=== PATIENT | female | born 1960 | race Hispanic/Latino ===

== ENCOUNTER 2018-03-21 14:35 | Emergency (ER) | payer OTHER ==
[2018-03-21 15:02] VITALS: RESP 18
[2018-03-21 15:03] VITALS: BMI 22.7
--- NOTE | 2018-03-21 15:32 | ED PDOC ---
Arrival/HPI - General Historian: Patient - History of Present Illness Narrative History of Present Illness (Text): 03/21/18 15:15 57-year-old female with a history of depression presents today with a 2 day history of left foot pain swelling and erythema. Patient states she had a pedicure about a month ago and had some pain in the left great toe since then. Patient states the pain became severe 2 days ago when she noticed erythema and a large swelling to the plantar aspect of the left great toe. She denies fevers or chills at home. She denies numbness weakness or tingling in the extremity. Patient denies a history of diabetes. Patient denies any trauma or injury. No medications have been taken at home for pain. No other complaints. Time/Duration: Other (2 days) <Estela Clements - Last Filed: 03/21/18 19:40> <Jaret Polo - Last Filed: 03/22/18 07:27> - General Chief Complaint: Lower Extremity Problem/Injury Time Seen by Provider: 03/21/18 14:37 Past Medical History - Provider Review Nursing Documentation Reviewed: Yes - Travel History Have you recently traveled outside [place] w/in the past 3 mons?: No - Psychiatric Hx Depression: Yes Hx Substance Use: No - Surgical History Other/Comment: wisdom teeth removal - Anesthesia Hx Anesthesia: Yes Hx Anesthesia Reactions: No Hx Malignant Hyperthermia: No <Estela Clements - Last Filed: 03/21/18 19:40> Family/Social History - Physician Review Nursing Documentation Reviewed: Yes Family/Social History: Unknown Family HX Smoking Status: Never Smoked Hx Alcohol Use: Yes Frequency of alcohol use: Socially Hx Substance Use: No <Estela Clements - Last Filed: 03/21/18 19:40> Allergies/Home Meds <Estela Clements - Last Filed: 03/21/18 19:40> <Jaret Polo - Last Filed: 03/22/18 07:27> Allergies/Adverse Reactions: Allergies No Known Allergies Allergy (Verified 03/21/18 15:08) Review of Systems - Review of Systems Constitutional: absent: Fatigue, Fevers Respiratory: absent: SOB, Cough Cardiovascular: absent: Chest Pain, Palpitations Gastrointestinal: absent: Abdominal Pain, Nausea, Vomiting Musculoskeletal: Arthralgias Skin: Abscess, Cellulitis Neurological: absent: Headache, Dizziness Psychiatric: absent: Anxiety, Depression <Estela Clements T - Last Filed: 03/21/18 19:40> Physical Exam Vital Signs Reviewed: Yes Vital Signs Temp Pulse Resp BP Pulse Ox 03/21/18 15:02 98.2 F 101 H 18 123/60 99 Temperature: Afebrile Blood Pressure: Normal Pulse: Tachycardic Respiratory Rate: Normal Appearance: Positive for: Well-Appearing, Non-Toxic, Comfortable Pain Distress: None Mental Status: Positive for: Alert and Oriented X 3 - Systems Exam Head: Present: Atraumatic Neck: Present: Normal Range of Motion Respiratory/Chest: Present: Clear to Auscultation, Good Air Exchange. No: Respiratory Distress, Accessory Muscle Use Cardiovascular: Present: Regular Rate and Rhythm, Normal S1, S2. No: Murmurs Upper Extremity: Present: Normal Inspection Lower Extremity: Present: NORMAL PULSES, Normal ROM, Tenderness, Swelling, Erythema, Neurovascularly Intact, Capillary Refill < 2 s. No: CALF TENDERNESS Neurological: Present: GCS=15, Speech Normal Skin: Present: Warm, Dry Psychiatric: Present: Alert, Oriented x 3 <Estela Clements T - Last Filed: 03/21/18 19:40> Vital Signs Temp Pulse Resp BP Pulse Ox 03/21/18 20:42 98.9 F 75 18 127/73 97 03/21/18 19:00 72 18 124/72 100 03/21/18 15:02 98.2 F 101 H 18 123/60 99 <Jaret Polo - Last Filed: 03/22/18 07:27> Medical Decision Making ED Course and Treatment: 03/21/18 15:51 57yr old female with left foot pain, swelling, erythema and fluctuance. Cbc wnl Cmp wnl blood cultures Pending xray left foot: FINDINGS: BONES: Normal. No fracture. JOINTS: Normal. SOFT TISSUES: There is severe soft tissue swelling around the 1st MTP joint. No evidence of osteomyelitis OTHER FINDINGS: None. IMPRESSION: There is severe soft tissue swelling around the 1st MTP joint. No evidence of osteomyelitis case discussed with dr. May and Podiatry resident who will see patient at bedside. Patient was seen and evaluated by the podiatry resident at bedside. A bedside incision and drainage was performed. Patient was given 1 g of Ancef IV. Patient is to be discharged home to follow-up with Dr. May within the next 2 days. pt advised to take medications as prescribed and return immediately if symptoms worsen,persist or if new symptoms develop. pt is to follow up with dr. May in the wound care center on friday. Cane given for ambulation. pt was seen and evaluated by dr. Polo. Patient verbalizes understanding of discharge instructions and need for immediate followup. Impression: abscess, foot Motrin every 6 hours as needed for pain Keflex 1 capsule 4 times daily 7 days Bactrim 1 tablet twice daily 7 days Follow-up with the community development director within the next 2 days Follow up with the primary care physician within the next 2 days. Return immediately if symptoms worsen persist or if new concerning symptoms dev elop 03/21/18 19:40 - RAD Interpretation Radiology Orders: 03/21/18 15:13 FOOT LEFT 3 VIEWS ROUTINE [RAD] Stat <Estela Clements T - Last Filed: 03/21/18 19:40> ED Course and Treatment: 03/22/18 07:27 The documented history was done by the physician critical care technician. The documented physical exam was done by the physician critical care technician. The documented procedures were done by the physician critical care technician, I was available for consultation during the PA/CANCELLATION CLERK evaluation. The chart was reviewed by me, and I agree with the management and plan. - Lab Interpretations Lab Results: 03/21/18 15:30 03/21/18 15:30 Lab Results 03/21/18 15:30: pO2 18 L, VBG pH 7.36, VBG pCO2 56.0, VBG HCO3 31.6 H, VBG Total CO2 33.3 H, VBG O2 Sat (Calc) 28.5 L, VBG Base Excess 4.6 H, VBG Potassium 4.6, Sodium 136.0, Chloride 103.0, Glucose 108 H, Lactate 0.9, FiO2 21.0, Venous Blood Potassium 4.6 03/21/18 15:30: WBC 9.3, RBC 4.70, Hgb 14.3, Hct 43.0, MCV 91.5, MCH 30.4, MCHC 33.3, RDW 13.4, Plt Count 288, MPV 8.7, Gran % 64.4, Lymph % (Auto) 25.2, [place] % (Auto) 6.6 H, Eos % (Auto) 3.3, Baso % (Auto) 0.5, Gran # 5.97, Lymph # (Auto) 2.3, [place] # (Auto) 0.6, Eos # (Auto) 0.3, Baso # (Auto) 0.05 03/21/18 15:30: Sodium 137, Chloride 101, Potassium 4.8, Carbon Dioxide 30, Anion Gap 11, BUN 14, Creatinine 0.6 L, Est GFR ( Amer) > 60, Est GFR (Non-Af Amer) > 60, Random Glucose 110, Calcium 9.6, Total Bilirubin 0.4, AST 28, ALT 27, Alkaline Phosphatase 105, Total Protein 7.6, Albumin 4.2, Globulin 3.4, Albumin/Globulin Ratio 1.2 - RAD Interpretation Radiology Orders: 03/21/18 15:13 FOOT LEFT 3 VIEWS ROUTINE [RAD] Stat - Medication Orders Current Medication Orders: Discontinued Medications Cefazolin Sodium (Ancef 1gm In Ns) 1 gm in 100 mls @ 100 mls/hr IVPB STAT STA; Protocol Stop: 03/21/18 19:24 Lidocaine HCl (Lidocaine 1% (20ml)) 10 ml IJ STAT STA Stop: 03/21/18 18:33 <Jaret Polo - Last Filed: 03/22/18 07:27> Disposition/Present on Arrival - Present on Arrival Any Indicators Present on Arrival: No History of DVT/PE: No History of Uncontrolled Diabetes: No Urinary Catheter: No History of Decub. Ulcer: No History Surgical Site Infection Following: None - Disposition Have Diagnosis and Disposition been Completed?: Yes Disposition Time: 15:54 Patient Plan: Discharge <Estela Clements - Last Filed: 03/21/18 19:40> <Jaret Polo - Last Filed: 03/22/18 07:27> - Disposition Diagnosis: Foot abscess, left Disposition: HOME/ ROUTINE Condition: GOOD Discharge Instructions (ExitCare): Abscess Incision and Drainage Additional Instructions: Motrin every 6 hours as needed for pain Keflex 1 capsule 4 times daily 7 days Bactrim 1 tablet twice daily 7 days Follow-up with the community development director within the next 2 days Follow up with the primary care physician within the next 2 days. Return immediately if symptoms worsen persist or if new concerning symptoms develop Prescriptions: Cephalexin [Keflex] 500 mg PO QID #28 capsule Ibuprofen [Motrin] 600 mg PO Q6H PRN #20 tab PRN Reason: pain/fever reduction Sulfamethoxazole/Trimethoprim [Bactrim DS 800 mg-160 mg] 1 tab PO BID #14 tab Referrals: Aston May DPM [Staff Provider] - Follow up with primary [facility] [Outside] - Follow up with primary [facility] [Outside] - Follow up with primary Forms: [employer] ([employer]), WORK NOTE
[2018-03-21 16:15] LABS: VENOUS BLOOD GAS BASE EXCESS 4.6 mmol/L (0.0-2.0); VENOUS BLOOD GAS PO2 18 mm/Hg (30-55); VENOUS BLOOD PH 7.36 (7.32-7.43)
[2018-03-21 16:18] LABS: BASO # 0.05 K/mm3 (0.0-2.0); BASO % 0.5 % (0.0-3.0); EOS # 0.3 (0.0-0.7); EOS % 3.3 % (1.5-5.0); GRAN # 5.97 (1.4-6.5); GRAN % 64.4 % (50.0-68.0); HEMOGLOBIN 14.3 g/dL (12.0-16.0); LYMPH # 2.3 (1.2-3.4); LYMPH % 25.2 % (22.0-35.0); MEAN CELL VOLUME 91.5 fl (80.0-105.0); MEAN CORPUSCULAR HEMOGLOBIN 30.4 pg (25.0-35.0); MEAN CORPUSCULAR HGB CONC 33.3 g/dl (31.0-37.0); MEAN PLATELET VOLUME 8.7 fl (7.0-11.0); MONO # 0.6 (0.1-0.6); MONO % 6.6 % (1.0-6.0); RBC 4.7 10^6/uL (3.5-6.1); RED CELL DISTRIBUTION WIDTH 13.4 % (11.5-14.5); WHITE BLOOD COUNT 9.3 10^3/ul (4.5-11.0)
[2018-03-21 16:31] LABS: ALB/GLOB RATIO 1.2 (1.1-1.8); ALBUMIN 4.2 g/dL (3.0-4.8); ALT/SGPT 27 U/L (7-56); AST/SGOT 28 U/L (14-36); BLOOD UREA NITROGEN 14 mg/dL (7-21); CALCIUM 9.6 mg/dL (8.4-10.5); GFR NON-AFRICAN AMERICAN > 60
--- NOTE | 2018-03-21 16:50 | RAD ---
Date of service: 03/21/2018 PROCEDURE: Left Foot Radiographs. HISTORY: foot pain/large infected fluctuance to 1st MTP COMPARISON: None. FINDINGS: BONES: Normal. No fracture. JOINTS: Normal. SOFT TISSUES: There is severe soft tissue swelling around the 1st MTP joint. No evidence of osteomyelitis OTHER FINDINGS: None. IMPRESSION: There is severe soft tissue swelling around the 1st MTP joint. No evidence of osteomyelitis
--- NOTE | 2018-03-21 18:00 | CP.PCM.CON ---
<Nicho Thompson - Last Filed: 03/22/18 07:40> History of Present Illness - History of Present Illness History of Present Illness: Podiatry - Dr. May 57 year old female patient PMHx depression seen and evaluated in ED concerning left foot pain. Patient states approximately 1 month ago she had a pedicure and since then has been complaining of minor swelling on the ball of her foot; pat ient denies getting cut or developing any open wounds since the pedicure. Patient relates she has been soaking her foot in Epsom salts and has been able to ambulate fine until this past when the swelling on the ball of her foot significantly increased in size along with associated redness and moderate pain. Of note, patient also relates approximately 2 weeks ago she had a splinter in the same area and had it removed in an urgent care facility; states she did not receive any antibiotics after the splinter was removed. At present, patient reports moderate pain with pressure in her left great toe extending proximally into the ball of her foot. Denies numbness/burning/tingling. Patient states she went to see an outside door tender for care, who then referred her to [facility] [place] r/o abscess. Denies N/V/F/D/C/SOB/[place]/dizziness. Offers no other complaints. PMHx: depression PSH: wisdom teeth FH: stomach cancer (both parents) SH: occasional ETOH, denies tobacco/illicit drug use All: NKDA Review of Systems - Review of Systems All systems: reviewed and no additional remarkable complaints except (as per HPI) Past Patient History - Past Social History Smoking Status: Never Smoked - PSYCHIATRIC Hx Depression: Yes Hx Substance Use: No - SURGICAL HISTORY Other/Comment: wisdom teeth removal - ANESTHESIA Hx Anesthesia: Yes Hx Anesthesia Reactions: No Hx Malignant Hyperthermia: No Meds Home Medications: Home Medication List Medication Instructions Recorded Confirmed Type Cephalexin [Keflex] 500 mg PO QID #28 capsule 03/21/18 Rx Ibuprofen [Motrin] 600 mg PO Q6H PRN #20 tab 03/21/18 Rx Sulfamethoxazole/Trimethoprim 1 tab PO BID #14 tab 03/21/18 Rx [Bactrim DS 800 mg-160 mg] Allergies/Adverse Reactions: Allergies Allergy/AdvReac Type Severity Reaction Status Date / Time No Known Allergies Allergy Verified 03/21/18 15:08 Physical Exam - Constitutional Appears: Well, Non-toxic, No Acute Distress - Extremities Exam Additional comments: LLE focused physical exam: VASC: DP and PT pulses palpable 2/4. CFT <3 seconds to all digits. Temperature gradient cool to warm, with significant in crease in warmth to areas of erythema surrounding 1st metatarsal head extending distally into hallux. Severe non- pitting edema noted to plantar aspect of 1st metatarsal head. NEURO: Light touch and protective sensation intact. DERM: Erythema surrounding 1st metatarsal head extending distally into hallux with associated fluctuance. Xerosis noted plantarly. No open lesions visible. No interdigital maceration present. ORTHO: Pain on palpation noted to areas of erythema and edema. 1st MPJ and hallucal IPJ ROM limited secondary to edema. Muscle strength 5/5 for all dorsiflexors, plantarflexors, inverters, and everters. - Neurological Exam Neurological exam: Alert, Oriented x3 - Psychiatric Exam Psychiatric exam: Normal Affect, Normal Mood Results - Vital Signs Recent Vital Signs: Last Vital Signs Temp 98.2 F 03/21/18 15:02 Pulse 101 H 03/21/18 15:02 Resp 18 03/21/18 15:02 BP 123/60 03/21/18 15:02 Pulse Ox 99 03/21/18 15:02 - Labs Result Diagrams: 03/21/18 15:30 03/21/18 15:30 Labs: Laboratory Results - last 24 hr 03/21/18 03/21/18 03/21/18 15:30 15:30 15:30 WBC 9.3 RBC 4.70 Hgb 14.3 Hct 43.0 MCV 91.5 MCH 30.4 MCHC 33.3 RDW 13.4 Plt Count 288 MPV 8.7 Gran % 64.4 Lymph % (Auto) 25.2 [place] % (Auto) 6.6 H Eos % (Auto) 3.3 Baso % (Auto) 0.5 Gran # 5.97 Lymph # (Auto) 2.3 [place] # (Auto) 0.6 Eos # (Auto) 0.3 Baso # (Auto) 0.05 pO2 18 L VBG pH 7.36 VBG pCO2 56.0 VBG HCO3 31.6 H VBG Total CO2 33.3 H VBG O2 Sat (Calc) 28.5 L VBG Base Excess 4.6 H VBG Potassium 4.6 Sodium 137 136.0 Chloride 101 103.0 Glucose 108 H Lactate 0.9 FiO2 21.0 Potassium 4.8 Carbon Dioxide 30 Anion Gap 11 BUN 14 Creatinine 0.6 L Est GFR ( Amer) > 60 Est GFR (Non-Af Amer) > 60 Random Glucose 110 Calcium 9.6 Total Bilirubin 0.4 AST 28 ALT 27 Alkaline Phosphatase 105 Total Protein 7.6 Albumin 4.2 Globulin 3.4 Albumin/Globulin Ratio 1.2 Venous Blood Potassium 4.6 Assessment & Plan - Assessment and Plan (Free Text) Assessment: 57 year old female with left foot painful edema + erythema r/o abscess Plan: Patient seen and evaluated Discussed with attending, Dr. May Afebrile, WBC WNL 9.3 Left foot XR reviewed: severe soft tissues swelling around 1st MPJ. No evidence of osteomyelitis Love block administered using 1% lidocaine Utilizing #11 blade, 1cm stab incisions placed along medial and plantar 1st metatarsal to drain fluid Wound culture obtained x1 dose of Ancef given in ED Recommend Rx Keflex 500mg PO TID x10 days Pain control per ED Left foot dressed with DSD Surgical shoe dispensed; patient to PWB to heel in surgical shoe Keep dressing clean/dry/intact until follow up visit Patient to follow up with Dr. May in wound care center next Friday, 03/24 Thank you for the consult <Aston May - Last Filed: 03/23/18 09:32> Results - Vital Signs Recent Vital Signs: Last Vital Signs Temp 98.9 F 03/21/18 20:42 Pulse 75 03/21/18 20:42 Resp 18 03/21/18 20:42 BP 127/73 03/21/18 20:42 Pulse Ox 97 03/21/18 20:42 - Labs Result Diagrams: 03/21/18 15:30 03/21/18 15:30 Attending/Attestation - Attestation I have personally seen and examined this patient.: Yes I have fully participated in the care of the patient.: Yes I have reviewed all pertinent clinical information: Yes
[2018-03-21] MEDS ORDERED: Lidocaine 1% 5ml Abboject ONE (18:12)
[2018-03-21] MEDS ORDERED: ceFAZolin 1 gm in NS 1 GM/100 ML BAG IVPB STA (18:25)
[2018-03-21] MEDS ORDERED: Lidocaine 1% Inj (20ml) IJ STA (18:32)
[2018-03-21 20:43] VITALS: BP 127/73; PULSE 75; TEMP 98.9; O2SAT 97
== END 2018-03-21 21:15 | disposition home or self-care (01) ==
LOC: ED 14:35
DX: L02.612 Cutaneous abscess of left foot (principal)